=== PATIENT | male | born 1965 | race Caucasian/White ===

== ENCOUNTER 2025-03-13 04:52 | Observation (INO) | payer SELFPAY ==
[2025-03-13] VITALS (21 sets, daily range): BP systolic 112–172; BP diastolic 78–122; PULSE 66–109; RESP 6–25; TEMP 36.6–36.9; O2SAT 94–99; BMI 23.6
--- NOTE | 2025-03-13 05:00 | XRR_ITS ---
PROCEDURE INFORMATION: Exam: XR Chest Exam date and time: 03/13/2025 5:05 AM Age: 59 years old Clinical indication: Chest pressure; C/O chest pain; Additional info: Cp TECHNIQUE: Imaging protocol: Radiologic exam of the chest. Views: 1 view. COMPARISON: No relevant prior studies available. FINDINGS: Lungs: Unremarkable. No consolidation. Pleural spaces: Unremarkable. No pleural effusion. No pneumothorax. Heart/Mediastinum: Unremarkable. No cardiomegaly. Bones/joints: Unremarkable. XR/XR chest 1V portable [id number] IMPRESSION: No acute findings.
--- NOTE | 2025-03-13 05:00 | CTR_ITS ---
PROCEDURE INFORMATION: Exam: CT Head Without Contrast Exam date and time: 03/13/2025 5:18 AM Age: 59 years old Clinical indication: Weakness, extremity; C/O sudden onset of left upper ext weakness; Additional info: Left sided weakness TECHNIQUE: Imaging protocol: Computed tomography of the head without contrast. Radiation optimization: All CT scans at this facility use at least one of these dose optimization techniques: automated exposure control; mA and/or kV adjustment per patient size (includes targeted exams where dose is matched to clinical indication); or iterative reconstruction. COMPARISON: No relevant prior studies available. RADIATION DOSE METRICS: Total DLP (mGy-cm): 1020.48 FINDINGS: Brain: Normal. No hemorrhage. Unremarkable white matter. No mass effect. Cerebral ventricles: No ventriculomegaly. Paranasal sinuses: Visualized sinuses are unremarkable. No fluid levels. Mastoid air cells: Visualized mastoid air cells are well aerated. Bones: Unremarkable. No acute fracture. Soft tissues: Unremarkable. CT/CT head wo con* [id number] IMPRESSION: No acute intracranial abnormality.
--- NOTE | 2025-03-13 05:00 | ECG_ITS ---
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
[2025-03-13 05:29] LABS: Hematocrit 39.5 % (37-53); Hemoglobin 13.10 g/dL (11.27-16.99); Mean Corpuscular HGB Conc 33.2 g/dL (30-55); Mean Corpuscular Hemoglobin 31.3 pg (27-33); Mean Corpuscular Volume 94.5 fl (82-101); Nucleated Red Blood Cells % 0 %; Platelet Count 189 10^3/cmm (157-399); Red Blood Count 4.18 10^6/uL (3.85-5.65); White Blood Count 9.47 10^3/uL (3.29-11.43)
--- NOTE | 2025-03-13 05:56 | W.ED.CHESTPA ---
Documented by User: Power Zaidi Adonay, 03/14/25 20:14 HPI - Chest Pain General: Chief Complaint: Chest Pain Stated Complaint: CHEST PAIN Time Seen by Provider: 03/13/25 05:01 History of Present Illness: Patient is a 59-year-old male who presents to the emergency department following an episode of acute left arm numbness and weakness that occurred at approximately 11:00 PM last night. The patient reports he was performing chores, handling a gallon jug of water when his left arm suddenly went numb, causing him to drop the jug. He describes the sensation as his arm feeling like 'a dummy arm' that he could not feel at all. Concurrent with this episode, he experienced ringing in his ears. His noted facial drooping and had difficulty understanding his speech temporarily. The patient denies experiencing chest pain during the initial event. His , who has a history of strokes, administered an aspirin and a nitroglycerin tablet, after which the patient began to regain some sensation in his left arm. He denies any involvement of his lower extremities. The patient did report experiencing mild chest pressure during transport to the hospital. This is his first hospital visit, and he reports no established primary care physician. Related Data Previous Rx's ?Medication ?Instructions ?Recorded apixaban 5 mg (74 tabs) tablets in 5 mg PO BID #74 ea 03/14/25 a dose pack aspirin 81 mg tablet 81 mg PO DAILY #90 tabs 03/14/25 atorvastatin 40 mg tablet 40 mg PO BEDTIME #90 tabs 03/14/25 furosemide 20 mg tablet (Lasix) 20 mg PO DAILY PRN edema #30 tabs 03/14/25 lisinopril 5 mg tablet 5 mg PO DAILY #90 tabs 03/14/25 metoprolol tartrate 25 mg tablet 12.5 mg (1/2 x 25 mg) PO 03/14/25 BID@0900,2100 #90 tabs nicotine (polacrilex) 4 mg buccal 4 mg mucous membrane Q4H PRN 03/14/25 lozenge Nicotine Cravings #30 ea Allergies Allergy/AdvReac Type Severity Reaction Status Date / Time No Known Allergies Allergy Verified 03/13/25 11:28 [facility] PFSH: Family History Father CAD (coronary artery disease) Social History Smoking and tobacco/nicotine status: current every day tobacco/nicotine user Quit status (tobacco/nicotine): considering quitting Alcohol intake: never Substance/Drug Use: never Lives independently: Yes Household members: spouse Marital status: Physical Exam Const: COMMON NORMALS: no acute distress GENERAL APPEARANCE: cooperative; not ill appearing and not frail appearing HENMT: COMMON NORMALS: normocephalic, atraumatic and Normal external nose present HEAD & SCALP: normocephalic and atraumatic FACE & SINUS: normal facial exam and face symmetric NOSE: Normal external nose present Eye: COMMON NORMALS: Equal, round and reactive pupils present and EOMs intact bilaterally PUPIL: Yes Equal, round and reactive pupils present Neck/C-Spine: GENERAL: Yes trachea midline Chest: CHEST: Yes Symmetrical chest wall rise Resp: COMMON NORMALS: normal respiratory effort, No retractions, No use of accessory muscles and clear to auscultation bilaterally AUSCULTATION: clear to auscultation bilaterally Cardio: COMMON NORMALS: regular rate and regular rhythm RATE: regular rate RHYTHM: regular rhythm GI: COMMON NORMALS: Normal to inspection, nondistended, normoactive bowel sounds present Extremity: COMMON NORMALS: no pedal edema Neuro: MUSA COMA SCALE: document GCS findings [place] coma scale eye opening: Spontaneous [place] coma scale verbal response: Orientated [place] coma scale motor response: Obey commands [place] coma scale total score: 15 SENSORY EXAM: Yes extremities (intact) Psych: COMMON NORMALS: speech normal SPEECH: Yes normal speech Skin: COMMON NORMALS: no rashes or lesions noted GENERAL SKIN EXAM: no rashes or lesions noted Course Vital Signs: Vital signs: Vital Signs Temperature 98.0 F 03/14/25 08:00 Pulse Rate 65 03/14/25 13:26 Respiratory Rate 17 03/14/25 08:00 Blood Pressure 163/96 03/14/25 13:26 Pulse Oximetry 98 03/14/25 13:26 Oxygen Delivery Me thod Room Air 03/14/25 04:00 MDM - Chest Pain Medical Decision Making The patient is hypertensive on arrival. EKG shows an atrial flutter pattern without significant ST wave changes. He does not have a history of this. His chest x-ray is negative. His head CT is negative. CBC is normal. Other laboratories pending. Lab Data 03/13/25 05:15 03/13/25 05:15 Radiology Impressions Chest X-Ray 03/13/25 05:00 IMPRESSION: No acute findings. Head CT 03/13/25 05:00 IMPRESSION: No acute intracranial abnormality. Laboratory Results WBC 9.47 10^3/uL (3.29-11.43) 03/13/25 05:15 RBC 4.18 10^6/uL (3.85-5.65) 03/13/25 05:15 Hgb 13.10 g/dL (11.27-16.99) 03/13/25 05:15 Hct 39.5 % (37-53) 03/13/25 05:15 MCV 94.5 fl (82-101) 03/13/25 05:15 MCH 31.3 pg (27-33) 03/13/25 05:15 MCHC 33.2 g/dL (30-55) 03/13/25 05:15 RDW 13.1 % (12.1-15.1) 03/13/25 05:15 Plt Count 189 10^3/cmm (157-399) 03/13/25 05:15 MPV 10.6 fL (7.4-10.4) H 03/13/25 05:15 Neut % (Auto) 70.9 % 03/13/25 05:15 Lymph % (Auto) 20.7 % 03/13/25 05:15 [place] % (Auto) 6.4 % 03/13/25 05:15 Eos % (Auto) 1.2 % 03/13/25 05:15 Baso % (Auto) 0.6 % 03/13/25 05:15 Neut # (Auto) 6.71 10^3/uL (1.8-7.7) 03/13/25 05:15 Lymph # (Auto) 2.0 10^3/uL (0.8-4.8) 03/13/25 05:15 [place] # (Auto) 0.6 10^3/uL (0.2-0.9) 03/13/25 05:15 Eos # (Auto) 0.1 10^3/uL (0.0-0.8) 03/13/25 05:15 Baso # (Auto) 0.1 10^3/uL (0.0-0.1) 03/13/25 05:15 Nucleated RBC % (auto) 0 % 03/13/25 05:15 Nucleated RBCs # 0.0 /100WBC 03/13/25 05:15 Sodium 138 mmol/L (136-145) 03/13/25 05:15 Potassium 3.8 mmol/L (3.5-5.1) 03/13/25 05:15 Chloride 103 mmol/L (98-107) 03/13/25 05:15 Carbon Dioxide 24 mmol/L (22-29) 03/13/25 05:15 Anion Gap 14.8 (5-19) 03/13/25 05:15 BUN 10 mg/dL (6-20) 03/13/25 05:15 Creatinine 1.0 mg/dL (0.7-1.2) 03/13/25 05:15 GFR Calculation 76.7 mL/min (90-130) L 03/13/25 05:15 Glucose 103 mg/dL (65-115) 03/13/25 05:15 Estimat Average Glucose 131 03/13/25 05:15 Hemoglobin A1c 6.2 % (4.0-6.0) H 03/13/25 05:15 Calculated Osmolality 285 mOsm/kg (285-295) 03/13/25 05:15 Calcium 8.8 mg/dL (8.5-10.5) 03/13/25 05:15 Total Bilirubin 0.5 mg/dL (0.15-1.2) 03/13/25 05:15 AST 15 U/L (0-40) 03/13/25 05:15 ALT 11 U/L (0-41) 03/13/25 05:15 Alkaline Phosphatase 95 U/L (40-130) 03/13/25 05:15 Creatine Kinase 120 U/L (39-308) 03/13/25 05:15 Troponin T Baseline 19 ng/L (0-15) H 03/13/25 05:15 Troponin T 120 Minute 19.15 ng/L (0-15) H 03/13/25 07:14 Delta Troponin T 0.15 ABS# (0-10) 03/13/25 07:14 NT-Pro-B Natriuret Pep 3409 pg/mL (0-125) H 03/13/25 05:15 Total Protein 7.4 g/dL (6.6-8.7) 03/13/25 05:15 Albumin 4.0 g/dL (3.5-5.2) 03/13/25 05:15 Globulin 3.4 g/dL (1.3-4.6) 03/13/25 05:15 Triglycerides 80 mg/dL (0-150) 03/13/25 05:15 Cholesterol 153 mg/dL (0-200) 03/13/25 05:15 LDL Cholesterol, Calc 114 mg/dL (50-129) 03/13/25 05:15 HDL Cholesterol 23 mg/dL (60-100) L 03/13/25 05:15 LDL/HDL Ratio 4.96 RATIO (0.00-3.22) H 03/13/25 05:15 Cholesterol/HDL Ratio 6.65 mg/dL (1.0-5.00) H 03/13/25 05:15 Urine Opiates Screen Negative ng/mL (Negative) 03/13/25 06:09 Ur Barbiturates Screen Negative ng/mL (Negative) 03/13/25 06:09 Ur Phencyclidine Scrn Negative ng/mL (Negative) 03/13/25 06:09 Ur Amphetamines Screen Negative ng/mL (Negative) 03/13/25 06:09 U Benzodiazepines Scrn Negative ng/mL (Negative) 03/13/25 06:09 Urine Cocaine Screen Negative ng/mL (Negative) 03/13/25 06:09 U Marijuana (THC) Screen Negative ng/mL (Negative) 03/13/25 06:09 Discharge Plan Discharge Patient Disposition: Admitted As Inpatient Admit Provider: Rashel Simms Clinical Impression: New onset a-fib, Chest pain, TIA (transient ischemic attack) Condition: Stable Discharge Diet: Cardiac and Diabetic Sign Out Sign Out Data: Patient Sign Out occurred on 03/13/25 at 06:16. Patient's care was discussed, and care was transferred from Power Urias DO to Remigio Pedro DO. Coding Level of Care Code ED Eyeglass Frames Polisher for Chg Fwd Documented by User: Remigio Pedro DO 03/13/25 07:59 HPI - Chest Pain General: Chief Complaint: Chest Pain Stated Complaint: CHEST PAIN Time Seen by Provider: 03/13/25 05:01 Related Data Previous Rx's ?Medication ?Instructions ?Recorded apixaban 5 mg (74 tabs) tablets in 5 mg PO BID #74 ea 03/14/25 a dose pack aspirin 81 mg tablet 81 mg PO DAILY #90 tabs 03/14/25 atorvastatin 40 mg tablet 40 mg PO BEDTIME #90 tabs 03/14/25 furosemide 20 mg tablet (Lasix) 20 mg PO DAILY PRN edema #30 tabs 03/14/25 lisinopril 5 mg tablet 5 mg PO DAILY #90 tabs 03/14/25 metoprolol tartrate 25 mg tablet 12.5 mg (1/2 x 25 mg) PO 03/14/25 BID@0900,2100 #90 tabs nicotine (polacrilex) 4 mg buccal 4 mg mucous membrane Q4H PRN 03/14/25 lozenge Nicotine Cravings #30 ea Allergies Allergy/AdvReac Type Severity Reaction Status Date / Time No Known Allergies Allergy Verified 03/13/25 11:28 PFSH ED PFSH: Family History Father CAD (coronary artery disease) Social History Smoking and tobacco/nicotine status: current every day tobacco/nicotine user Quit status (tobacco/nicotine): considering quitting Alcohol intake: never Substance/Drug Use: never Lives independently: Yes Household members: spouse Marital status: Physical Exam Neuro: MUSA COMA SCALE: document GCS findings [place] coma scale total score: 15 Course Vital Signs: Vital signs: Vital Signs Temperature 98.0 F 03/14/25 08:00 Pulse Rate 65 03/14/25 13:26 Respiratory Rate 17 03/14/25 08:00 Blood Pressure 163/96 03/14/25 13:26 Pulse Oximetry 98 03/14/25 13:26 Oxygen Delivery Me thod Room Air 03/14/25 04:00 MDM - Chest Pain Medical Decision Making The patient is hypertensive on arrival. EKG shows an atrial flutter pattern without significant ST wave changes. He does not have a history of this. His chest x-ray is negative. His head CT is negative. CBC is normal. Other laboratories pending. Care assumed at change of shift. EKG shows atrial fibrillation which is new for him no acute ST changes. troponins no significant delta. Patient does have new onset atrial fibrillation and by his history had a TIA last night which lasted about 20 minutes per his report with left-sided deficits that now have fully resolved. Dr. Urias reported presenting NIH of 0 when I reexamined the patient after lab work and completed his NIH is still 0 at this time. His chest pain relieved with nitro at home. Will admit the patient with new onset A-fib TIA and angina. Discussed with hospitalist orders written. Medical Records I reviewed the patient's medical records. Lab Data I reviewed the patient's lab results. 03/13/25 05:15 03/13/25 05:15 Radiology Impressions Chest X-Ray 03/13/25 05:00 IMPRESSION: No acute findings. Head CT 03/13/25 05:00 IMPRESSION: No acute intracranial abnormality. Laboratory Results WBC 9.47 10^3/uL (3.29-11.43) 03/13/25 05:15 RBC 4.18 10^6/uL (3.85-5.65) 03/13/25 05:15 Hgb 13.10 g/dL (11.27-16.99) 03/13/25 05:15 Hct 39.5 % (37-53) 03/13/25 05:15 MCV 94.5 fl (82-101) 03/13/25 05:15 MCH 31.3 pg (27-33) 03/13/25 05:15 MCHC 33.2 g/dL (30-55) 03/13/25 05:15 RDW 13.1 % (12.1-15.1) 03/13/25 05:15 Plt Count 189 10^3/cmm (157-399) 03/13/25 05:15 MPV 10.6 fL (7.4-10.4) H 03/13/25 05:15 Neut % (Auto) 70.9 % 03/13/25 05:15 Lymph % (Auto) 20.7 % 03/13/25 05:15 [place] % (Auto) 6.4 % 03/13/25 05:15 Eos % (Auto) 1.2 % 03/13/25 05:15 Baso % (Auto) 0.6 % 03/13/25 05:15 Neut # (Auto) 6.71 10^3/uL (1.8-7.7) 03/13/25 05:15 Lymph # (Auto) 2.0 10^3/uL (0.8-4.8) 03/13/25 05:15 [place] # (Auto) 0.6 10^3/uL (0.2-0.9) 03/13/25 05:15 Eos # (Auto) 0.1 10^3/uL (0.0-0.8) 03/13/25 05:15 Baso # (Auto) 0.1 10^3/uL (0.0-0.1) 03/13/25 05:15 Nucleated RBC % (auto) 0 % 03/13/25 05:15 Nucleated RBCs # 0.0 /100WBC 03/13/25 05:15 Sodium 138 mmol/L (136-145) 03/13/25 05:15 Potassium 3.8 mmol/L (3.5-5.1) 03/13/25 05:15 Chloride 103 mmol/L (98-107) 03/13/25 05:15 Carbon Dioxide 24 mmol/L (22-29) 03/13/25 05:15 Anion Gap 14.8 (5-19) 03/13/25 05:15 BUN 10 mg/dL (6-20) 03/13/25 05:15 Creatinine 1.0 mg/dL (0.7-1.2) 03/13/25 05:15 GFR Calculation 76.7 mL/min (90-130) L 03/13/25 05:15 Glucose 103 mg/dL (65-115) 03/13/25 05:15 Estimat Average Glucose 131 03/13/25 05:15 Hemoglobin A1c 6.2 % (4.0-6.0) H 03/13/25 05:15 Calculated Osmolality 285 mOsm/kg (285-295) 03/13/25 05:15 Calcium 8.8 mg/dL (8.5-10.5) 03/13/25 05:15 Total Bilirubin 0.5 mg/dL (0.15-1.2) 03/13/25 05:15 AST 15 U/L (0-40) 03/13/25 05:15 ALT 11 U/L (0-41) 03/13/25 05:15 Alkaline Phosphatase 95 U/L (40-130) 03/13/25 05:15 Creatine Kinase 120 U/L (39-308) 03/13/25 05:15 Troponin T Baseline 19 ng/L (0-15) H 03/13/25 05:15 Troponin T 120 Minute 19.15 ng/L (0-15) H 03/13/25 07:14 Delta Troponin T 0.15 ABS# (0-10) 03/13/25 07:14 NT-Pro-B Natriuret Pep 3409 pg/mL (0-125) H 03/13/25 05:15 Total Protein 7.4 g/dL (6.6-8.7) 03/13/25 05:15 Albumin 4.0 g/dL (3.5-5.2) 03/13/25 05:15 Globulin 3.4 g/dL (1.3-4.6) 03/13/25 05:15 Triglycerides 80 mg/dL (0-150) 03/13/25 05:15 Cholesterol 153 mg/dL (0-200) 03/13/25 05:15 LDL Cholesterol, Calc 114 mg/dL (50-129) 03/13/25 05:15 HDL Cholesterol 23 mg/dL (60-100) L 03/13/25 05:15 LDL/HDL Ratio 4.96 RATIO (0.00-3.22) H 03/13/25 05:15 Cholesterol/HDL Ratio 6.65 mg/dL (1.0-5.00) H 03/13/25 05:15 Urine Opiates Screen Negative ng/mL (Negative) 03/13/25 06:09 Ur Barbiturates Screen Negative ng/mL (Negative) 03/13/25 06:09 Ur Phencyclidine Scrn Negative ng/mL (Negative) 03/13/25 06:09 Ur Amphetamines Screen Negative ng/mL (Negative) 03/13/25 06:09 U Benzodiazepines Scrn Negative ng/mL (Negative) 03/13/25 06:09 Urine Cocaine Screen Negative ng/mL (Negative) 03/13/25 06:09 U Marijuana (THC) Screen Negative ng/mL (Negative) 03/13/25 06:09 All radiology interpretation(s) finalized by discharge EKG Data EKG 1: Interpretation: EKG 03/13/2025 5:06 AM A-fib with a rate of 96. QTc [address] elevation noted. No previous EKGs for comparison EKG 2: Interpretation: EKG 03/13/2025 0707 A-fib with rapid ventricular sponsor rate of 100. No acute ST elevation is noted QTc 464. Compared to previous EKG rate is slightly increased. No acute ST elevation or depression. Discharge Plan Discharge Patient Disposition: Admitted As Inpatient Admit Provider: Rashel Simms Clinical Impression: New onset a-fib, Chest pain, TIA (transient ischemic attack) Condition: Stable Discharge Diet: Cardiac and Diabetic Sign Out Sign Out Data: Patient Sign Out occurred on 03/13/25 at 06:16. Patient's care was discussed, and care was transferred from Power Urias DO to Remigio Pedro DO. Coding Level of Care Code ED Eyeglass Frames Polisher for Lily Haddad
[2025-03-13 05:57] LABS: Troponin(5th) Baseline 19 ng/L (0-15)
[2025-03-13 06:07] LABS: Alanine Aminotransferase 11 U/L (0-41); Albumin Level 4.0 g/dL (3.5-5.2); Alkaline Phosphatase 95 U/L (40-130); Anion Gap 14.8 (5-19); Aspartate Amino Transferase 15 U/L (0-40); Blood Urea Nitrogen 10 mg/dL (6-20); Calcium 8.8 mg/dL (8.5-10.5); Carbon Dioxide 24 mmol/L (22-29); Chloride 103 mmol/L (98-107); Creatinine Clr Calc Pharmacy 81.3736; Globulin 3.4 g/dL (1.3-4.6); Glucose 103 mg/dL (65-115); NT Pro B Type Natriuretic Pept 3409 pg/mL (0-125); Osmolality Calculated 285 mOsm/kg (285-295); Potassium 3.8 mmol/L (3.5-5.1); Sodium 138 mmol/L (136-145); Total Protein 7.4 g/dL (6.6-8.7)
[2025-03-13 06:22] LABS: PCP Screen Urine Negative (Negative)
--- NOTE | 2025-03-13 07:00 | ECG_ITS ---
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1965 Requested By: Power Zaidi Order Number: [id number] Wu MD: ALLYSSA HYATT Measurements Intervals [place] Rate: 100 P: 0 DC: 0 QRS: 84 QRSD: 117 T: 57 QT: 360 QTc: 464 Interpretive Statements ATRIAL FIBRILLATION WITH RAPID VENTRICULAR RESPONSE MODERATE INTRAVENTRICULAR CONDUCTION DELAY [110+ ms QRS DURATION] VOLTAGE CRITERIA FOR LVH [MEETS CRITERIA IN ONE OF: R(aVL), S(V1), R(V5), R(V5/V6)+S(V1)] NONSPECIFIC T-WAVE ABNORMALITY Compared to ECG 03/13/2025 05:06:28 Intraventricular conduction delay now present Left ventricular hypertrophy now present T-wave abnormality now present Ventricular-paced complex(es) or rhythm no longer present Electronically Signed On 03-13-2025 10:53:24 CDT by ALLYSSA HYATT [email or web address] [id number]
[2025-03-13 07:38] LABS: Troponin 5 2HR 19.15 ng/L (0-15); Troponin 5 2HR Delta 0.15 ABS# (0-10)
--- NOTE | 2025-03-13 08:46 | PC.PHAR ---
At home before coming to he Hospital Patient took 's Nitro. Patient doesn't take any medication at home.
--- NOTE | 2025-03-13 09:01 | P.HP_ITS ---
Providers/Chief Complaint 2 Chief Complaint: CHEST PAIN History of Present Illness Jose Rodríguez is a 59 year old man without any known medical history presented to the emergency department after an episode around 11?11:30 p.m. of sudden left arm numbness and weakness described as a ? arm,? accompanied by ringing in the ears. His observed garbled speech and a facial droop. She administered baby aspirin (81 mg) and then nitroglycerin a few minutes later. Symptoms began improving after medication administration and largely resolved by the time of evaluation. He reports mild chest pressure after taking nitroglycerin that improved. Currently feels mostly back to baseline with near-normal sensation in the left arm. Denies pain. Reports prior intermittent palpitations/fluttering a few months ago. Endorses mild shortness of breath when lying flat. Denies recent fever, sore throat, sneezing, cough, nausea, vomiting, diarrhea, melena, hematochezia, hematuria, urinary difficulties, rashes, or ankle swelling. Not established with a primary care provider. Review of Systems 2 Const: Denies: fever(s), chills, body aches or malaise ENMT: Denies: throat pain Card: Reports: chest pain; Denies: edema, pre-syncope or dyspnea on exertion Resp: Denies: dyspnea, productive cough, change in phlegm color or hemoptysis GI: Denies: abdominal pain, nausea, vomiting, diarrhea, constipation, hematochezia or melena : Denies: flank pain, difficulty urinating, urinary frequency or hematuria Musc: Denies: back pain, joint swelling or joint redness Skin/Breast: Denies: rash or new lesions Neuro: Reports: numbness in extremities, weakness in extremities, Slurred speech present and difficulty communicating thoughts; Denies: headache(s) or confusion Medications/Allergies Home Medications ?Medication ?Instructions ?Recorded ?Confirmed ?Last Taken ?Type No Known Home Medications 03/13/2502/27 Unknown History PFSH Acute 2 PFSH: Family History Father CAD (coronary artery disease) Social History Smoking and tobacco/nicotine status: current every day tobacco/nicotine user Quit status (tobacco/nicotine): considering quitting Alcohol intake: never Substance/Drug Use: never Lives independently: Yes Household members: spouse Marital status: Vitals/I&O/Wt Last Vital Signs Temp 98 F 03/13/25 05:03 Pulse 77 03/13/25 08:30 Resp 25 H 03/13/25 05:53 BP 142/97 03/13/25 08:30 Pulse Ox 95 03/13/25 08:30 03/12/25 03/13/25 03/13/25 22:59 06:59 14:59 Intake Total 0 / 0 Balance 0 / 0 Weight last 48 hrs Weight 72.575 kg Physical Exam 2 Narrative: Accompanied by his and sister. Const: COMMON NORMALS: patient oriented x3 and alert GENERAL APPEARANCE: c ooperative ORIENTATION/CONSCIOUSNESS: Yes awake HENMT: COMMON NORMALS: oropharynx normal Neck/C-Spine: COMMON NORMALS: no JVD Resp: COMMON NORMALS: normal respiratory effort and clear to auscultation bilaterally AUSCULTATION: clear to auscultation bilaterally Cardio: COMMON NORMALS: no JVD, regular rhythm, S1 normal heart sound present, S2 normal heart sound present and No murmurs present (Cardio) RHYTHM: regular rhythm HEART SOUNDS: S1 normal heart sound present and S2 normal heart sound present GI: COMMON NORMALS: Normal to inspection, nondistended, normoactive bowel sounds present, Soft to palpation and non-tender PALPATION: Yes Soft to palpation Extremity: COMMON NORMALS: no joint enlargement and no pedal edema Neuro: COMMON NORMALS: patient oriented x3 and moves all extremities S ENSORIUM/ORIENTATION: Yes alert OTHER: He is awake and alert, responsive, no difficulty following directions. No difficulty with horizontal tracking. Visual jarrell full to confrontation, no visual extinction. No facial droop, no aphasia or dysarthria. FNF without difficulty. No upper or lower extremity drift. Sensation intact bilaterally without sensory extinction. Skin: COMMON NORMALS: no rashes or lesions noted GENERAL SKIN EXAM: no rashes or lesions noted Data 03/13/25 05:15 03/13/25 05:15 A&P Assessment and plan 1. TIA (transient ischemic attack): Symptoms so far have resolved. NIHSS 0 currently. Further hospitalization for monitoring, telemetry, assessment of additional stroke risk factors. Reviewed vitals, CT head, glucose, CBC, BMP, UDS, ED provider note, discussed with ED provider. - Start aspirin going forward (additional dose given after arrival; patient also took 81 mg at home and received aspirin en route in the ambulance). - Start cholesterol medication to reduce risk of recurrence of transient ischemic attack (TIA) and stroke. - Initiate a blood thinner (anticoagulant) with Lovenox to start due to atrial fibrillation with rapid ventricular response to reduce stroke risk (with discussion of bleeding risk). Monitor for risk of bleeding. - Admit/keep for stroke evaluation and monitoring. - Monitor blood pressure; allow to run high unless it becomes very high, in which case treat to lower it. - Telemetry monitoring to track heart rhythm and rate (noted atrial fibrillation with rapid ventricular response on electrocardiogram). - Order hemoglobin A1c and fasting lipid panel (cholesterol). - Order an ultrasound of the heart (echocardiogram) to assess systolic function and valves and to evaluate dyspnea when supine. - Physical therapy and speech therapy evaluations during admission. - Provide nicotine lozenges as needed for cravings (patient declined nicotine patch). - Request case management consultation to help establish a primary care provider. 2. New onset a-fib: Further assess echocardiogram. Discussed risk of CVA. Reviewed EKG, A-fib with intraventricular delay on my interpretation, pending official read. Reviewed troponin, UDS. 3. Chest pain: - Discussed a cardiac stress test as an outpatient unless recurrent chest pain occurs or cardiac biomarkers rise. Discussed with him and his family present risk factors of CAD. - Aspirin, statin. Discussed smoking cessation. 4. Elevated blood pressure reading: Discussed finding of elevated blood pressure reading. Discussed monitoring blood pressure in the hospital, and continued monitoring at home. Patient and state that they have a blood pressure cuff at home and intends to continue monitoring and follow-up with PCP. 5. Smoking addiction: Discuss smoking cessation for 3-1/2 minutes, discussed risk of cardiovascular disease, lung disease, cancer. Patient has been cutting down is down to about 10 cigarettes a day from having smoked more in the past. Discussed complete cessation, he understands the need to quit. He declines patches but is okay with lozenges as needed. PDMP PDMP Reviewed: Not Reviewed Attestations 2 Medical Necessity Statement*: Place in observation for additional assessment management after TIA with new onset atrial fibrillation, episode of chest pain and gentleman with risk factors of CAD. and High MDM includes amount and/or complexity of data reviewed/ordered [ previous or external records, resulted lab(s)/test(s), ordered lab(s)/test(s) and other healthcare professional discussion] and described risk of complication, morbidity or mortality of management as documented Diagnoses TIA (transient ischemic attack) G45.9 New onset a-fib I48.91 Chest pain R07.9 Elevated blood pressure reading R03.0 Smoking addiction F17.200
--- NOTE | 2025-03-13 11:05 | ECG_ITS ---
[employer] Test Date: 2025-03-13 Pat Name: Jose Rodríguez Department: Room: ED Gender: Male Fitness Attendant: : 1965 Requested By: Power Zaidi Order Number: [id number] Washburn MD: Colt Ayon M.D. Measurements Intervals [place] Rate: 72 P: 0 LA: 0 QRS: 80 QRSD: 110 T: -39 QT: 394 QTc: 433 Interpretive Statements ATRIAL FLUTTER/TACHYCARDIA MODERATE INTRAVENTRICULAR CONDUCTION DELAY [105+ ms QRS DURATION, 80+ ms Q/S IN V1/V2, NO Q AND 60+ ms R IN I/aVL/V5/V6] VOLTAGE CRITERIA FOR LVH [MEETS CRITERIA IN ONE OF: R(aVL), S(V1), R(V5), R(V5/V6)+S(V1)] NONSPECIFIC T-WAVE ABNORMALITY Compared to ECG 03/13/2025 07:07:49 No significant change Electronically Signed On 03-15-2025 22:50:41 CDT by Cotl Ayon M.D. [email or web address]
--- NOTE | 2025-03-13 11:13 | USCV_ITS ---
Jose Rodríguez Age: 59 Gender: M : 1965 Exam Date: 03/13/2025 15:06 Ordering Phys: Rashel Simms MD Technologist: OSWALD [place] [facility] [place]: TIA BP: 136 / 87 HR: 69 Rhythm: Sinus Technical Quality: Adequate MEASUREMENTS (Male / Female) Normal Values 2D ECHO LV Diastolic Diameter PLAX 4.8 cm 4.2 - 5.9 / 3.9 - 5.3 cm IVS Diastolic Thickness 1.4 cm 0.6 - 1.0 / 0.6 - 0.9 cm IVS Systolic Thickness 1.8 cm LVPW Diastolic Thickness 1.6 cm 0.6 - 1.0 / 0.6 - 0.9 cm LVPW Systolic Thickness 1.8 cm LVOT Diameter 1.9 cm LV Ejection Fraction 2D Teich 40.0 % LV Ejection Fraction MOD 4C 34.4 % LV Ejection Fraction MOD 2C 36.7 % LV Ejection Fraction 2C AL 39.1 % LA Diameter 3.7 cm RA Systolic Volume 4C AL 52.8 ml RA Systolic Volume 4C MOD 52.6 ml LA Sys Volume AL 101.0 cm cubed LA Sys Volume Index AL 54.7 cm cubed/m squared Aorta at Sinotubular Diameter 2.3 cm IVC Diameter 1.7 cm M-MODE LA Ao Ratio MM 1.7 AV Cusp Separation MM 2.3 cm DOPPLER AV Peak Velocity 143.0 cm/s LVOT Peak Velocity 101.0 cm/s AV Area Cont Eq vti 1.8 cm squared AV Area Cont Eq pk 2.0 cm squared MV Peak Velocity 94.0 cm/s MV Area PHT 6.7 cm squared Mitral E to A Ratio 3.8 TR Peak Velocity 107.0 cm/s TR Peak Gradient 4.6 mmHg TV Peak E Velocity 66.0 cm/s PV Peak Velocity 62.0 cm/s FINDINGS Left Ventricle Normal left ventricular size. LV systolic function is mildly reduced with EF of 40 to 45%. Mild global hypokinesis. Right Ventricle Normal right ventricular size and function Right Atrium Normal in size. bubble study is suboptimal however no right-to- left shunt seen. Left Atrium Dilated Mitral Valve Structurally normal mitral valve. Mild mitral regurgitation. Aortic Valve Aortic valve is thickened. No significant stenosis or regurgitation Tricuspid Valve Insufficient TR jet to calculate RVSP Pulmonic Valve Not well-visualized Pericardium Normal Aorta Normal in size IVC Appears to be normal CONCLUSIONS LV systolic function is mildly reduced with EF of 40-45%. Bubble study is suboptimal however no [id number] shunt seen. Left atrial dilation. Mild mitral regurgitation. Tino Esparza MD (Electronically Signed) Final Date: 14 March 2025 11:05 S
[2025-03-13 11:42] LABS: Estmated Average Glucose 131; Hemoglobin A1C 6.2 % (4.0-6.0)
[2025-03-13 11:43] LABS: Troponin 5 6HR 17.70 ng/L (0-15); Troponin 5 6HR Delta -1.30 ng/L (0-12)
[2025-03-13 11:47] LABS: Cholesterol 153 mg/dL (0-200); HDL Cholesterol 23 mg/dL (60-100); Triglycerides 80 mg/dL (0-150)
[2025-03-14 04:00] VITALS: BP 161/100; PULSE 66; RESP 18; TEMP 36.6; O2SAT 97
[2025-03-14 08:00] VITALS: BP 163/96; PULSE 65; RESP 17; TEMP 36.7; O2SAT 97
[2025-03-14 08:54] LABS: INR 1.03 (0.8-1.2); Prothrombin Time 14.20 SECONDS (12.1-14.9)
--- NOTE | 2025-03-14 10:08 | P.DS_ITS ---
Discharge Providers Date of Admission: 03/13/25 09:39 Date of Discharge: March 14, 2025 Attending Provider at Admission: Rashel Simms Attending Provider at Discharge: Rashel Simms Diagnoses at Discharge Discharge Diagnosis 1. TIA (transient ischemic attack): 2. New onset a-fib: 3. Chest pain: 4. Elevated blood pressure readin. Smoking addiction: Reason for Visit Reason for Visit: CHEST PAIN Brief History: Jose Rodríguez is a 59 year old man without any known medical history presented to the emergency department after an episode around 11?11:30 p.m. of sudden left arm numbness and weakness described as a ? arm,? accompanied by ringing in the ears. His observed garbled speech and a facial droop. She administered baby aspirin (81 mg) and then nitroglycerin a few minutes later. Symptoms began improving after medication administration and largely resolved by the time of evaluation. He reports mild chest pressure after taking nitroglycerin that improved. Currently feels mostly back to baseline with near-normal sensation in the left arm. Denies pain. Reports prior intermittent palpitations/fluttering a few months ago. Endorses mild shortness of breath when lying flat. Denies recent fever, sore throat, sneezing, cough, nausea, vomiting, diarrhea, melena, hematochezia, hematuria, urinary difficulties, rashes, or ankle swelling. Not established with a primary care provider. Hospital Course Hospital Course He was admitted and initiated on aspirin statin and anticoagulation for new onset atrial fibrillation troponin series were completed without significant elevation. He remained chest pain-free. Echocardiogram was obtained and as discussed with him with finding of decreased ejection fraction to 40-45%, global hypokinesis, risk of CHF, possible underlying coronary disease which has not been assessed discussed with him. Risk of MO, CHF, risk of stroke recurrence discussed with him with possible disabling or mortal complications, however, he could not remain in the hospital longer for additional assessment including str ess test. He is referred for stress testing and carotid duplex as outpatient. For cardiovascular risk reduction discussed with him continuation of aspirin, statin, with cardiomyopathy he is also started on lisinopril, for A-fib and the above also started on metoprolol low-dose 12.5 mg twice daily. A limited supply of Eliquis is provided for him through the pharmacy as he does not have insurance currently although has applied for Medicaid. In case Medicaid is not back before his supply runs out he will need to be switched over to warfarin which was not yet initiated due to difficulties with transportation. He is in the process of repairing his vehicle to be able to travel to and from appointments. He is referred for follow-up with neurology and cardiology for further assessment. Strongly encouraged to establish with primary provider and referral was given due to the identified issues at risk of further deterioration. Discussed risk of CHF with him, fluid restriction, salt restri ction, monitoring blood pressure. Discussed prediabetes as well and consistent carbohydrate diet. Discussed utmost importance of smoking cessation which she understands and will be pursuing. Physical Exam Narrative: Accompanied by his on first visit. Ambulating in the room on revisit. Const: COMMON NORMALS: patient oriented x3 and alert GENERAL APPEARANCE: cooperative ORIENTATION/CONSCIOUSNESS: Yes awake HENMT: COMMON NORMALS: oropharynx normal Neck/C-Spine: COMMON NORMALS: no JVD Resp: COMMON NORMALS: normal respiratory effort and clear to auscultation bilaterally AUSCULTATION: clear to auscultation bilaterally Cardio: COMMON NORMALS: no JVD, regular rhythm, S1 normal heart sound present, S2 normal heart sound present and No murmurs present (Cardio) RHYTHM: regular rhythm HEART SOUNDS: S1 normal heart sound present and S2 normal heart sound present GI: COMMON NORMALS: Normal to inspection, nondistended, normoactive bowel sounds present, Soft to palpation and non-tender PALPATION: Yes Soft to palpation Extremity: COMMON NORMALS: no joint enlargement and no pedal edema Neuro: COMMON NORMALS: patient oriented x3 and moves all extremities SENSORIUM/ORIENTATION: Yes alert Skin: COMMON NORMALS: no rashes or lesions noted GENERAL SKIN EXAM: no rashes or lesions noted Discharge Data Studies Completed and Pending Completed Studies During Hospitalization Category Date Time Status CT head wo con* [id number] Stat Cat Scan 03/13/25 05:00 Completed XR chest 1V portable [id number] Stat Exams 03/13/25 05:00 Completed Pending at discharge Category Date Time Status CV. echo w/w bubble cont [id number] Routine Ultrasound 03/13/25 11:13 Taken Radiology Impressions Chest X-Ray 03/13/25 05:00 IMPRESSION: No acute findings. Head CT 03/13/25 05:00 IMPRESSION: No acute intracranial abnormality. Laboratory Results WBC 9.47 10^3/uL (3.29-11.43) 03/13/25 05:15 RBC 4.18 10^6/uL (3.85-5.65) 03/13/25 05:15 Hgb 13.10 g/dL (11.27-16.99) 03/13/25 05:15 Hct 39.5 % (37-53) 03/13/25 05:15 MCV 94.5 fl (82-101) 03/13/25 05:15 MCH 31.3 pg (27-33) 03/13/25 05:15 MCHC 33.2 g/dL (30-55) 03/13/25 05:15 RDW 13.1 % (12.1-15.1) 03/13/25 05:15 Plt Count 189 10^3/cmm (157-399) 03/13/25 05:15 MPV 10.6 fL (7.4-10.4) H 03/13/25 05:15 Neut % (Auto) 70.9 % 03/13/25 05:15 Lymph % (Auto) 20.7 % 03/13/25 05:15 Gates % (Auto) 6.4 % 03/13/25 05:15 Eos % (Auto) 1.2 % 03/13/25 05:15 Baso % (Auto) 0.6 % 03/13/25 05:15 Neut # (Auto) 6.71 10^3/uL (1.8-7.7) 03/13/25 05:15 Lymph # (Auto) 2.0 10^3/uL (0.8-4.8) 03/13/25 05:15 Gates # (Auto) 0.6 10^3/uL (0.2-0.9) 03/13/25 05:15 Eos # (Auto) 0.1 10^3/uL (0.0-0.8) 03/13/25 05:15 Baso # (Auto) 0.1 10^3/uL (0.0-0.1) 03/13/25 05:15 Nucleated RBC % (auto) 0 % 03/13/25 05:15 Nucleated RBCs # 0.0 /100WBC 03/13/25 05:15 PT 14.20 SECONDS (12.1-14.9) 03/14/25 08:27 INR 1.03 (0.8-1.2) 03/14/25 08:27 Sodium 138 mmol/L (136-145) 03/13/25 05:15 Potassium 3.8 mmol/L (3.5-5.1) 03/13/25 05:15 Chloride 103 mmol/L (98-107) 03/13/25 05:15 Carbon Dioxide 24 mmol/L (22-29) 03/13/25 05:15 Anion Gap 14.8 (5-19) 03/13/25 05:15 BUN 10 mg/dL (6-20) 03/13/25 05:15 Creatinine 1.0 mg/dL (0.7-1.2) 03/13/25 05:15 GFR Calculation 76.7 mL/min (90-130) L 03/13/25 05:15 Glucose 103 mg/dL (65-115) 03/13/25 05:15 Estimat Average Glucose 131 03/13/25 05:15 Hemoglobin A1c 6.2 % (4.0-6.0) H 03/13/25 05:15 Calculated Osmolality 285 mOsm/kg (285-295) 03/13/25 05:15 Calcium 8.8 mg/dL (8.5-10.5) 03/13/25 05:15 Total Bilirubin 0.5 mg/dL (0.15-1.2) 03/13/25 05:15 AST 15 U/L (0-40) 03/13/25 05:15 ALT 11 U/L (0-41) 03/13/25 05:15 Alkaline Phosphatase 95 U/L (40-130) 03/13/25 05:15 Creatine Kinase 120 U/L (39-308) 03/13/25 05:15 Troponin T Baseline 19 ng/L (0-15) H 03/13/25 05:15 Troponin T 120 Minute 19.15 ng/L (0-15) H 03/13/25 07:14 Delta Troponin T 0.15 ABS# (0-10) 03/13/25 07:14 Troponin T Hi Sens 6Hr 17.70 ng/L (0-15) H 03/13/25 11:14 Troponin T Hi Sens 6Hr Delta -1.30 ng/L (0-12) L 03/13/25 11:14 NT-Pro-B Natriuret Pep 3409 pg/mL (0-125) H 03/13/25 05:15 Total Protein 7.4 g/dL (6.6-8.7) 03/13/25 05:15 Albumin 4.0 g/dL (3.5-5.2) 03/13/25 05:15 Globulin 3.4 g/dL (1.3-4.6) 03/13/25 05:15 Triglycerides 80 mg/dL (0-150) 03/13/25 05:15 Cholesterol 153 mg/dL (0-200) 03/13/25 05:15 LDL Cholesterol, Calc 114 mg/dL (50-129) 03/13/25 05:15 HDL Cholesterol 23 mg/dL (60-100) L 03/13/25 05:15 LDL/HDL Ratio 4.96 RATIO (0.00-3.22) H 03/13/25 05:15 Cholesterol/HDL Ratio 6.65 mg/dL (1.0-5.00) H 03/13/25 05:15 Urine Opiates Screen Negative ng/mL (Negative) 03/13/25 06:09 Ur Barbiturates Screen Negative ng/mL (Negative) 03/13/25 06:09 Ur Phencyclidine Scrn Negative ng/mL (Negative) 03/13/25 06:09 Ur Amphetamines Screen Negative ng/mL (Negative) 03/13/25 06:09 U Benzodiazepines Scrn Negative ng/mL (Negative) 03/13/25 06:09 Urine Cocaine Screen Negative ng/mL (Negative) 03/13/25 06:09 U Marijuana (THC) Screen Negative ng/mL (Negative) 03/13/25 06:09 Vitals Last Vital Signs Temp 97.9 F 03/14/25 04:00 Pulse 66 03/14/25 04:00 Resp 18 03/14/25 04:00 BP 161/100 03/14/25 04:00 Pulse Ox 97 03/14/25 04:00 O2 Del Method Room Air 03/14/25 04:00 Discharge Plan Discharge Patient Disposition: Home Condition: Stable Prescriptions: New atorvastatin 40 mg Tablet 40 mg PO BEDTIME Qty: 90 0RF nicotine (polacrilex) 4 mg Lozenge 4 mg mucous membrane Q4H PRN (Reason: Nicotine Cravings) Qty: 30 3RF metoprolol tartrate 25 mg Tablet 12.5 mg PO BID@0900,2100 Qty: 90 0RF aspirin 81 mg tablet 81 mg PO DAILY Qty: 90 0RF apixaban 5 mg (74 tabs) tablets,dose pack 5 mg PO BID Qty: 74 0RF lisinopril 5 mg tablet 5 mg PO DAILY Qty: 90 0RF furosemide [Lasix] 20 mg tablet 20 mg PO DAILY PRN (Reason: edema) Qty: 30 0RF Discharge Order = DC NOW: Discharge Order (Routine); Ordered 03/14/25 Ordered By: Rashel Simms Other Ambulatory Orders: CV carotid duplex BI* [id number] (Routine) Timeframe: 2 Days Facility: [facility] - Location: Radiology [facility] Ordered By: Rashel Simms Sestamibi Stress Test Request (Routine) Timeframe: 1 Week Facility: [facility] - Location: Cardiac Diagnostic Laboratory Ordered By: Rashel Simms Referrals: Libby Brantley MD [Physician, Neurology] - 05/22/25 3:00 pm Referral Note: TIA The office is waiting for the MACHINING SUPERVISOR to start booking in the next two weeks. As soon as he joins the office they will call the PT with an earlier appointment. Maria Eugenia Edwards FNP [Staff Physician, Unknown] - 4-7 days Referral Note: TIA, HTN, new AFib Per Suhail Dos Santos PT needs to call and make an appt because he is not an established patient Trisha Abraham FNP [Nurse Practitioner, Cardiology] - 03/20/25 3:00 pm Referral Note: cardiomyopathy, new afib, CAD risk Discharge Diet: Cardiac and Diabetic Patient Instructions: Diabetes and Diet, Apixaban (By mouth) (Eliquis), Transient Ischemic Attack (GEN), A-fib (Atrial Fibrillation) (DC), Chronic Hypertension (GEN), Self Care Measures After a Stroke (DC), Prediabetes (GEN), Stroke (GEN), Stroke Prevention (DC), Opioid Safety, Patient Portal & Jenniffer Instructions Activity Restrictions/Additional Instructions: Continue to monitor blood pressures 2-3 times daily, write down values to bring to her appointment. As discussed please maintain consistent carbohydrate diet due to finding of prediabetes. Please follow-up with your primary provider for reassessment. Please continue aspirin and atorvastatin due to transient ischemic attack (prestroke, with risk of recurrence of previous stroke or full stroke) and concern for possible underlying coronary disease. Please stop smoking entirely as discussed. Please follow-up for stress test and follow-up with your primary doctor for results. Further discuss results of echocardiogram with your primary provider. Continue optimization of cardiovascular risk factors to help reduce chance of progression of vascular disease. As discussed in case of bleeding seek medical attention if bleeding is not resolving or is not minor. With noted reduced ejection fraction on echocardiogram to 40 to 45% you are at r isk of acute congestive heart failure. Restrict fluid intake to 1.5 L/day. Reduce sodium intake to less than 2000 mg in a day. You are also started on lisinopril to help both manage blood pressure as well as reduce worsening of your heart function in addition to aspirin and atorvastatin due to risks of coronary disease pending further assessment with stress test. Diuretic is provided as needed in case you develop shortness of breath with laying flat and walking and ankle edema, rapid weight gain of more than 3 pounds in 2 days that may signify acute congestive heart failure. Seek medical attention in case of any worsening or new concerning symptoms. Discharge Attestations Time Spent in Discharge Care*: greater than 30 min Quality Metrics Clinical Quality Measures [ Cerebrovascular Accident { Contraindication to Antithrombotic: None; antithrombotic prescribed; Contraindication to Anticoagulation: None; anticoagulation prescribed; Contraindication to Statin: None; Statin prescribed;}] Coding Level of Care Code 25651 Total time (in minutes) for Discharge: 50 Diagnoses TIA (transient ischemic attack) G45.9 New onset a-fib I48.91 Chest pain R07.9 Elevated blood pressure reading R03.0 Smoking addiction F17.200
--- NOTE | 2025-03-14 11:31 | PC.NURSE ---
real estate transaction coordinator rounds at 1030- gave patient stroke education book and went through all of the s/s of stroke, that stroke is an emergency- to come into ED right away, and how to prevent them in the future. Risk factor of smoking was discussed extensively, pt verbalized understanding to quit.
--- NOTE | 2025-03-14 13:23 | PC.NURSE ---
patient discharged to home. Instruction provided regarding follow appointments, outpatient stress test and new medications. Stressed importance of medication compliance and appointment needs. patient and spouse both verbalized complete understanding. Medications provided to patient via [id number] prior to leaving. patient denies pain or needs. No distress observed. Patient left ambulatory to private vehicle with family at bedside.
[2025-03-14 13:26] VITALS: BP 163/96; PULSE 65; O2SAT 98
== END 2025-03-14 13:27 | disposition home or self-care (01) ==
LOC: ER 07:59 → CSU 11:31 → ER IP 03-14 06:19
PROVIDERS: Emergency Medicine; Admitting Provider Internal Medicine; Emergency Provider Family Medicine; Visit Provider Internal Medicine
DX: G45.9 Transient cerebral ischemic attack, unspecified (principal); I48.91 Unspecified atrial fibrillation; R03.0 Elevated blood-pressure reading, without diagnosis of hypertension; F17.200 Nicotine dependence, unspecified, uncomplicated; Z82.49 Family history of ischemic heart disease and other diseases of the circulatory system; Z79.82 Long term (current) use of aspirin
CPT/HCPCS: 36415; 70450; 71045; 80053; 80061; 80306; 82550; 83036; 83880; 84484; 85025; 85610; 92523; 92610; 93005; 96372; 97161; 97165; 97530; 99285; C8929; G0378; J1650; J9999